=== PATIENT | male | born 1995 | race Caucasian/White ===

== ENCOUNTER 2020-10-01 18:09 | Emergency (ER) | payer SELFPAY ==
[~2020-10-01] VITALS: Ht 170.2 cm; Wt 60.2 kg
[2020-10-01 18:15] VITALS: BP 125/68
--- NOTE | 2020-10-01 20:55 | NUR ---
Service Car Operator: Called for patient. Patient not in lobby at this time for 1st attempt.
--- NOTE | 2020-10-01 21:15 | NUR ---
outsole caser: Called for patient. Pt not in lobby at this time, 2nd attempt.
--- NOTE | 2020-10-01 21:44 | NUR ---
Wood Boatbuilder: Called for patient. Pt not in lobby for 3rd attempt.
== END 2020-10-01 21:48 | disposition left against medical advice (07) ==
LOC: ED 18:15
DX: S90.822A Blister (nonthermal), left foot, initial encounter (principal); S90.821A Blister (nonthermal), right foot, initial encounter; X58.XXXA Exposure to other specified factors, initial encounter; Y93.89 Activity, other specified; Y92.89 Other specified places as the place of occurrence of the external cause; Y99.8 Other external cause status
CPT/HCPCS: 82962; 99282